=== PATIENT | male | born 1990 | race Caucasian/White ===

== ENCOUNTER 2023-08-14 11:04 | Emergency (ER) | payer MEDICAID, SELFPAY ==
[2023-08-14 11:11] VITALS: BP 133/84; PULSE 104; RESP 18; TEMP 36.6; O2SAT 94; BMI 44.9
--- NOTE | 2023-08-14 11:41 | XR_ITS ---
The [address] [address] Patient Name: SUDHIR WARNER MRN: [id number] date: 1990 Sex: M Assigned Patient Location: ER Current Patient Location: ER Accession/Order Number: [id number] Exam Date: 08/14/2023 11:55 Report Date: 08/14/2023 12:15 At the request of: ARIANA NUGENT Procedure: XR chest 2V EXAM: XR chest 2V HISTORY: cough, left rib/chest pain COMPARISON: None. TECHNIQUE: PA and lateral views of the chest. FINDINGS: The cardiomediastinal silhouette is normal. Airspace disease of the right middle lobe. There is no pneumothorax. No pleural effusion is noted. The osseous structures are intact. XR/XR chest 2V IMPRESSION: Airspace disease the right middle lobe. Electronically authenticated by: CARMEN ABBOTT Date: 08/14/2023 12:15
--- NOTE | 2023-08-14 11:42 | ED.GENADUL1 ---
HPI - General Adult General Chief complaint: Back Pain/Injury Stated complaint: ABDOMINAL PAIN Time Seen by Provider: 08/14/23 11:12 Source: patient Mode of arrival: walk-in Limitations: no limitations History of Present Illness HPI narrative: Patient complains ofpain along the left lateral lower rib cage - worse with coughing. No improvement after taking motrin around 6am. He is concerned because he has been coughing for about a week and is getting no relief from the various over the counter medications he has tried. No fever or chills. No headache, GI or symptoms. No abdominal pain. Related Data Previous Rx's Medication Instructions Recorded azithromycin 250 mg tablet See Rx Instructions PO .COMPLEX #6 08/14/23 tabs [id number]-lmsbbsqwtcyhxtk-UX 5 ml PO Q6H PRN cough 7 days #118 08/14/23 2 mg-30 mg-10 mg/5 mL oral syrup mL (Bromfed DM) methocarbamol 750 mg tablet 750 mg PO Q6H PRN pain #30 tabs 08/14/23 nabumetone 750 mg tablet 750 mg PO BID PRN pain #14 tabs 08/14/23 Allergies Allergy/AdvReac Type Severity Reaction Status Date / Time No Known Drug Allergies Allergy Verified 08/14/23 11:11 [facility] Social History Smoking status: Current every day smoker Exam Narrative Exam Narrative: Nurses notes and vital signs reviewed and patient is not hypoxic. afebrile General: Well-appearing and in no apparent distress. Skin: Warm, dry, no pallor noted. No rash. Eye: Pupils are equal, round and EOMI. No scleral icterus. Cardiovascular: Regular Rate and Rhythm without murmur, gallop or rub. Respiratory: No accessory muscle use or respiratory distress. Lungs are clear to auscultation, no wheezing, rales or rhonchi Chest Wall: Lateral left lower rib cage tenderness without crepitus, subcutaneous emphysema or palpable fracture. Back: No midline thoracic or lumbar vertebral tenderness. No CVA tenderness. Left lower rib tenderness as noted above. GI: Abdomen is soft, non-distended. Normal bowel sounds. No tenderness to palpation. No rebound, guarding, or rigidity noted. Neurological: A&O x4. No cranial nerve dysfunction observed. No truncal ataxia. Moves all extremities. Sensation intact. Psychiatric: Cooperative and interactive. Normal mood and affect. Constitutional Vital Signs, click to edit/add: Last Vital Signs Temp 97.8 F 08/14/23 11:11 Pulse 92 H 08/14/23 12:25 Resp 18 08/14/23 12:25 BP 132/82 08/14/23 12:25 Pulse Ox 95 08/14/23 12:25 O2 Del Method Room Air 08/14/23 11:11 Course Vital Signs Vital signs: Vital Signs Temperature 97.8 F 08/14/23 11:11 Pulse Rate 104 H 08/14/23 11:11 Respiratory Rate 18 08/14/23 11:11 Blood Pressure 133/84 08/14/23 11:11 Pulse Oximetry 94 L 08/14/23 11:11 Oxygen Delivery Method Room Air 08/14/23 11:11 Temperature 97.8 F 08/14/23 11:11 Pulse Rate 92 H 08/14/23 12:25 Respiratory Rate 18 08/14/23 12:25 Blood Pressure 132/82 08/14/23 12:25 Pulse Oximetry 95 08/14/23 12:25 Oxygen Delivery Method Room Air 08/14/23 11:11 Medical Decision Making MDM Narrative Medical decision making narrative: 2 view chest x-ray obtained. The patient was ordered to receive IM Toradol and oral Robaxin for his pain. right middle lobe airspace disease identified by radiologist. Patient informed of results and discharged home with prescriptions for bromfed for cough, relafen and robaxin for pain. He was also prescribed zpak. PCP follow up recommended. Imaging Data Chest x-ray: Attestation: I have reviewed the pertinent imaging results. Radiologist's impression: ITS Impressions Chest X-Ray 08/14/23 11:41 IMPRESSION: Airspace disease the right middle lobe. Electronically authenticated by: CARMEN ABBOTT Date: 08/14/2023 12:15 Discharge Plan Discharge Stand Alone Forms: Portal Instructions Chief Complaint: Back Pain/Injury Clinical Impression: Right middle lobe pneumonia, Acute chest wall pain, Cough Patient Disposition: Home, Self-Care Time of Disposition Decision: 12:39 Prescriptions / Home Meds: New prpdtohdmyvjfef-djpseszgw-XI [Bromfed DM] 2-30-10 mg/5 mL syrup 5 ml PO Q6H PRN (Reason: cough) 7 Days Qty: 118 0RF nabumetone 750 mg tablet 750 mg PO BID PRN (Reason: pain) Qty: 14 0RF methocarbamol 750 mg tablet 750 mg PO Q6H PRN (Reason: pain) Qty: 30 0RF azithromycin 250 mg tablet See Rx Instructions .ROUTE .COMPLEX Qty: 6 0RF Rx Instructions: For 250 mg dose pack: take 500 mg today (day 1), then 250 mg for 4 days (days 2-5) Instructions: Community Acquired Pneumonia (ED), Chest Wall Pain (ED) Referrals: Teri López [employer] [facility] [Primary Care Provider] - 1 week
[2023-08-14] MEDS: KETOROLAC TROMETHAMINE 60 MG/2 ML VIAL IM (11:51)
[2023-08-14] MEDS: METHOCARBAMOL 500 MG TABLET PO (11:51)
[2023-08-14 12:25] VITALS: BP 132/82; PULSE 92; RESP 18; O2SAT 95
== END 2023-08-14 12:47 | disposition home or self-care (01) ==
PROVIDERS: Emergency Provider Emergency Medicine; PCP Nurse Practitioner
DX: R07.89 Other chest pain (principal); J18.9 Pneumonia, unspecified organism; R05.9 Cough, unspecified; F17.210 Nicotine dependence, cigarettes, uncomplicated
CPT/HCPCS: 71046; 96372; 99284